=== PATIENT | male | born 1970 | race Caucasian/White ===

== ENCOUNTER 2023-12-05 21:25 | Emergency (ER) | payer SELFPAY ==
[~2023-12-05] VITALS: Ht 172.7 cm; Wt 105.0 kg
[2023-12-05 22:25] VITALS: TEMP 98.5; O2SAT 98
[2023-12-06] MEDS ORDERED: IBUPROFEN 800MG TABLET PO ONE (01:45)
[2023-12-06] MEDS ORDERED: IBUP-2029 MT (03:20)
[2023-12-06] MEDS: IBUPROFEN 800MG TABLET PO NR (03:41)
[2023-12-06 03:44] VITALS: BP 145/91; PULSE 66; RESP 18
== END 2023-12-06 03:48 | disposition home or self-care (01) ==
LOC: ER 21:25
DX: R51.9 Headache, unspecified (principal); Z88.8 Allergy status to other drugs, medicaments and biological substances
CPT/HCPCS: 70486; 99284

== ENCOUNTER 2023-12-20 00:32 | Emergency (ER) | payer MEDICAID ==
[~2023-12-20] VITALS: Ht 172.7 cm; Wt 100.0 kg
[~2023-12-20 00:32] MED LIST: IBUP-2029 MT
[2023-12-20] MEDS: HALOPERIDOL LACTATE 5MG/ML VIAL IM ONE (01:45)
[2023-12-20] MEDS: DIPHENHYDRAMINE 50MG/ML VIAL IV ONE (01:45)
[2023-12-20] MEDS: LORAZEPAM 2MG/ML INJ IM ONE (01:45)
[2023-12-20 02:00] VITALS: O2SAT 99
[2023-12-20 03:59] LABS: BASOPHILS % 0.3 % (0.0-2.0); EOSINOPHILS % 1.8 % (0.0-5.0); HEMATOCRIT. 43.3 % (42.0-52.0); HEMOGLOBIN. 14.9 g/dL (14.0-18.0); LYMPHOCYTES % 15.5 % (20.0-50.0); MEAN CORPUSCULAR HEMOGLOBIN 31.5 pg (28.0-32.0); MEAN CORPUSCULAR HGB CONC 34.3 g/dL (31.0-37.0); MEAN CORPUSCULAR VOLUME 91.9 fL (80.0-94.0); MEAN PLATELET VOLUME 8.1 fl (7.4-10.4); MONOCYTES % 6.3 % (2.0-8.0); NEUTROPHILS % 76.1 % (40.0-76.0); PLATELET 253 x1000/uL (130-400); RED BLOOD CELL COUNT 4.72 mill/uL (4.7-6.1); RED CELL DISTRIBUTION WIDTH 15.6 % (11.6-14.6); WHITE BLOOD COUNT 9.5 x1000/uL (4.5-11.0)
[2023-12-20 04:06] LABS: CHLORIDE 107 mEq/L (98-107); POTASSIUM 3.2 mEq/L (3.5-5.1); SODIUM 138 mEq/L (136-145)
[2023-12-20 04:07] LABS: CALCIUM 8.9 mg/dL (8.7-10.4); CARBON DIOXIDE 25 mEq/L (21-32)
[2023-12-20 04:12] LABS: CREATININE 0.8 mg/dL (0.6-1.3); GLUCOSE 105 mg/dL (70-105); UREA NITROGEN BLOOD 9 mg/dL (9-23)
[2023-12-20 04:14] LABS: ACETAMINOPHEN < 2 ug/mL (10-30); ALANINE AMINOTRANSFERASE 26 IU/L (10-49); ALBUMIN 4.1 g/dL (3.2-4.8); ASPARTATE AMINOTRANSFERASE 36 IU/L (<34); BILIRUBIN TOTAL 0.9 mg/dL (0.1-1.0); PROTEIN TOTAL 6.7 g/dL (6.0-8.3)
[2023-12-20 04:22] LABS: ETHANOL BLOOD < 10 mg/dL (<10)
[2023-12-20 11:12] LABS: CLARITY URINE CLEAR (CLEAR); COLOR URINE DARK YELLOW (YELLOW); GLUCOSE URINE NEGATIVE (NEGATIVE); KETONES URINE NEGATIVE (NEGATIVE); LEUKOCYTE ESTERASE URINE NEGATIVE (NEGATIVE); NITRITE URINE NEGATIVE (NEGATIVE); OCCULT BLOOD URINE NEGATIVE (NEGATIVE); PH URINE 5.5 (4.5-8.0); PROTEIN URINE 1+ (NEGATIVE); SPECIFIC GRAVITY URINE 1.026 (1.005-1.030)
[2023-12-20 12:17] LABS: *AMPHETAMINES SCREEN URINE PRESUMPTIVE POSITIVE (NEGATIVE); *BARBITURATES SCREEN URINE NEGATIVE (NEGATIVE); *BENZODIAZEPINES SCREEN URINE NEGATIVE (NEGATIVE); *COCAINE SCREEN URINE NEGATIVE (NEGATIVE); METHADONE URINE SCREEN NEGATIVE (NEGATIVE); OPIATES URINE SCREEN NEGATIVE (NEGATIVE); PHENCYCLIDINE URINE SCREEN NEGATIVE (NEGATIVE)
[2023-12-20 12:18] LABS: CANNABINOID URINE SCREEN NEGATIVE (NEGATIVE); ECSTASY MDMA SCREEN URINE CONF.TEST INDICATED (NEGATIVE)
[2023-12-20 12:24] LABS: MUCUS URINE TRACE /lpf (NONE/TRACE); SQUAMOUS EPITHELIAL CELL URINE FEW /lpf (RARE/1+)
[2023-12-20 12:25] LABS: BACTERIA URINE TRACE; RBC URINE 0-2 /hpf (0-2); WBC URINE 0-2 /hpf (0-2)
[2023-12-20 17:30] VITALS: TEMP 97.9
[2023-12-20] MEDS: POTASSIUM CHLORIDE 20MEQ TABLET SR PO ONE (17:36)
[2023-12-20 23:06] LABS: POTASSIUM 4.2 mEq/L (3.5-5.1)
[2023-12-21 03:28] VITALS: BP 96/63; PULSE 82; RESP 16
== END 2023-12-21 01:30 ==
LOC: ER 00:32
DX: F29 Unspecified psychosis not due to a substance or known physiological condition (principal); Z20.822 Contact with and (suspected) exposure to COVID-19
CPT/HCPCS: 80053; 80305; 81003; 80307; 80329; 80320; 84132; 85025; 36415; 96372; 96374; 99285; 87426; J1200; J1630; J2060; Z7610 ×3; G0480